=== PATIENT | female | born 1990 | race Caucasian/White ===

== ENCOUNTER 2022-04-05 10:29 | Emergency (ER) | payer BC ==
[~2022-04-05] VITALS: Ht 160 cm; Wt 72.6 kg
[2022-04-05 10:44] VITALS: BP_SYST 134
--- NOTE | 2022-04-05 10:44 | NUR ---
Patient to ER Tent 1 to gown for evaluation. Side rails up. Report given to Janet MONTAGUE.
--- NOTE | 2022-04-05 11:00 | NUR ---
Pt bib self to er CC productive cough with green phlegm X2 days. Onset of cough began 10 days ago. Pt c/o chest wall pain 6/10 when coughing. Pt denies diarrhea. Pt c/o Nausea 1 episode of emesis in past 24 hours.
--- NOTE | 2022-04-05 11:15 | NUR ---
NOLBERTO Nguyen at bedside examining patient.
--- NOTE | 2022-04-05 11:49 | NUR ---
Covid negative. Pt brought inside to Hall[address].
[2022-04-05] MEDS ORDERED: predniSONE 20 MG TABLET PO ONE (12:30)
[2022-04-05] MEDS ORDERED: ACETAMINOPHEN 325 MG TABLET PO ONE (12:30)
[2022-04-05] MEDS ORDERED: ALBUTEROL SULFATE 0.083% 2.5 MG/3 ML VIAL.NEB INH ONE ×2 (12:30→13:45)
--- NOTE | 2022-04-05 14:06 | NUR ---
Pt completed albuterol treatment with RT pt states comfortable with no chest wall pain at this time.
[2022-04-05] MEDS ORDERED: ALBMDI INH (14:40)
[2022-04-05] MEDS ORDERED: PRED20TA PO (14:40)
[2022-04-05] MEDS ORDERED: AZIT-93 PO (14:40)
[2022-04-05] MEDS ORDERED: [UNRECOGNIZED DRUG - CODE] MC ×2 (14:53→14:55)
--- NOTE | 2022-04-05 15:00 | NUR ---
Patient given written and verbal discharge instructions and verbalizes understanding. ER MD discussed with patient the results and treatment provided. Patient in stable condition. ID arm band removed. Opportunity for questions provided and answered. Medication side effect fact sheet provided.
[2022-04-05 15:29] VITALS: BP_SYST 134
== END 2022-04-05 15:29 | disposition home or self-care (01) ==
LOC: SED 10:29
DX: J40 Bronchitis, not specified as acute or chronic (principal); R05.9 Cough, unspecified; Z88.8 Allergy status to other drugs, medicaments and biological substances; Z79.899 Other long term (current) drug therapy; Z20.822 Contact with and (suspected) exposure to COVID-19
CPT/HCPCS: 87081; 36415; 71045; 94640; 99285; 87426; J7512; J7613